=== PATIENT | male | born 1955 | race Caucasian/White ===

== ENCOUNTER → 2017-01-02 | Outpatient (CLI) | payer OTHER, MEDICAID ==
[~2017-01-02] MED LIST: 3N1 COMMODE MC; AMLO-147 PO; DIPH25CA77 PO; DOCU-144 PO; HYDR-762 PO; LEVO750T25 PO; LISI40TA9 PO; TRAM-40 PO; WALK1EAC23 MC
--- NOTE | 2017-01-02 10:52 | RADRPT ---
PROCEDURE: CR Left Knee CLINICAL INDICATION: Pain TECHNIQUE: An AP, lateral and a sunrise view were submitted. COMPARISON: 10/31/2016 FINDINGS: Osseous Structures: A well seated total left knee replacement is again evident. The osseous element s otherwise appear intact. Joint Spaces: There is again a large joint effusion. Soft Tissues: A calcification projects to the anterior subcutaneous fat ventral to the distal femur. IMPRESSION: 1. Well seated total left hip replacement again noted. 2. Persistent large joint effusion. 3. A calcification again projects to the ventral soft tissues at the level of the distal femoral sh aft. Physician Cece Date Time Electronically viewed and signed by Chanel Cruz Physician on 01/02/2017 10:52 RH/
== END | disposition home or self-care (01) ==
LOC: HKI 09:40
PROVIDERS: ATTEND Orthopaedic Surgery
DX: M25.462 Effusion, left knee (principal); M25.562 Pain in left knee; Z96.653 Presence of artificial knee joint, bilateral
CPT/HCPCS: 20610; 73562; G0463

== ENCOUNTER → 2017-06-05 | Outpatient (CLI) | payer OTHER, MEDICAID ==
--- NOTE | 2017-06-05 19:14 | RADRPT ---
PROCEDURE: Left knee radiographs. CLINICAL INDICATION: Left knee pain. Postop. TECHNIQUE: Three views. Weight bearing. Frontal, lateral, and patellar view. COMPARISON: 01/02/2017. FINDINGS: There is no fracture or dislocation. There is a moderate joint effusion, smaller than seen previously. There is a small soft tissue calc ified subcutaneous nodule overlying the distal femur as seen previously. The soft tissues are otherw ise normal. There is a total left knee arthroplasty which appears satisfactory. There is no lytic or blastic lesion. IMPRESSION: 1. Satisfactory postoperative appearance of the left knee. 2. Smaller joint effusion. RPTAT: QQ .Guido Dugan MD, MD Date Time Electronically viewed and signed by .Guido Dugan MD, MD on 06/05/2017 19:13 .R/
== END | disposition home or self-care (01) ==
LOC: HKI 09:09
PROVIDERS: ATTEND Orthopaedic Surgery
DX: Z47.89 Encounter for other orthopedic aftercare (principal); Z96.651 Presence of right artificial knee joint
CPT/HCPCS: 73562; G0463